=== PATIENT | male | born 1980 | race Caucasian/White ===

== ENCOUNTER 2024-01-30 07:16 | Emergency (ER) | payer BC, SELFPAY ==
[2024-01-30 07:24] VITALS: BP 156/102; PULSE 82; TEMP 36.6; O2SAT 99; BMI 34.7
--- NOTE | 2024-01-30 07:35 | CT_ITS ---
[address] [address] Patient Name: GAGAN LANDEROS MRN: [id number] date: 1980 Sex: M Assigned Patient Location: ED.MAIN Current Patient Location: ED.MAIN Accession/Order Number: [id number] Exam Date: 01/30/2024 07:54 Report Date: 01/30/2024 08:28 At the request of: REGINA GONSALEZ Procedure: CT abdomen pelvis wo con EXAMINATION: CT abdomen pelvis wo con HISTORY: left flank pain, r/o stone COMPARISON: No relevant comparison available. TECHNIQUE: Axial, Coronal, and Sagittal images were created without IV contrast. Dose reduction techniques were achieved by using automated exposure control and/or adjustment of mA and/or kV according to patient size and/or use of iterative reconstruction technique. FINDINGS: LUNG BASES: No visible pulmonary or pleural disease. LIVER: No enlargement, atrophy, abnormal density, or significant focal lesion. BILIARY: No dilatation or calcification. PANCREAS: No lesion, fluid collection, ductal dilatation, or atrophy. SPLEEN: No enlargement or focal lesion. ADRENALS: No mass or enlargement. KIDNEYS: Normal right. 4 mm stone in the left ureterovesical junction axial image 159 with asymmetric enlargement of the left kidney, mild left perinephric stranding and mild left ureteral dilatation BOWEL/MESENTERY: Colonic diverticulosis without evidence of acute diverticulitis. Nonobstructive bowel gas pattern. Normal appendix AORTA/VASCULAR: No aneurysm or dissection. RETROPERITONEUM: No mass or adenopathy. LYMPH NODES: No adenopathy. URINARY BLADDER: No visible focal wall thickening, lesion, or calculus. PELVIC ORGANS: No visible mass. Pelvic organs appropriate for patient age. ABDOMINAL WALL: No mass or hernia. BONES: No bony lesion or fracture. OTHER: Negative. CT/CT abdomen pelvis wo con IMPRESSION: 4 mm left ureterovesical junction with mild to moderate left obstructive uropathy Electronically authenticated by: VALDEMAR WYMAN Date: 01/30/2024 08:28
--- NOTE | 2024-01-30 07:35 | ED.BACK1 ---
HPI HPI - Back Pain/Injury General Chief Complaint: Back Pain/Injury Stated Complaint: FLANK/BACK PAIN Time Seen by Provider: 01/30/24 07:19 Source: patient Mode of arrival: walk-in Limitations: no limitations History of Present Illness HPI Narrative: 43-year-old male presented to the emergency department for left flank pain. It began last night. He has no history of trauma and has no history of kidney stones. No gross hematuria and no abdominal pain or right-sided pain. The pain is moderate and initially it was intermittent and now it is continuous. Related Data Home Medications ?Medication ?Instructions ?Recorded ?Confirmed alopurinol 100 mg PO DAILY 01/30/24 01/30/24 Previous Rx's ?Medication ?Instructions ?Recorded acetaminophen 300 mg-codeine 30 mg 1 tab PO Q6H PRN pain 5 days #20 01/30/24 tablet tabs ondansetron 4 mg disintegrating 4 mg PO Q6H PRN nausea and 01/30/24 tablet vomiting #20 tabs tamsulosin 0.4 mg capsule (Flomax) 0.4 mg PO DAILY #7 caps 01/30/24 Allergies Allergy/AdvReac Type Severity Reaction Status Date / Time No Known Drug Allergies Allergy Verified 01/30/24 07:23 Opioid HPI Opioid Management Most Recent Opioid Data: Last Pain Scale 6 01/30/24 07:46 Last ED Pain Assessment 01/30/24 07:30 Last MAR Pain Assessment 01/30/24 07:46 Review of Systems ROS Narrative A ten point review of systems is negative except as noted above. [facility] Medical History (Updated 01/30/24 @ 08:58 by Suman Harvey MD) Gout ?M10.9 - Gout, unspecified (ICD-10) Exam Narrative Exam Narrative: Nurses note and vital signs reviewed and patient is not hypoxic. General: The patient appears well and in no apparent distress. Patient is resting comfortably on cart. Skin: Warm, dry, no pallor noted. There is no rash noted. Head: Normocephalic, atraumatic Eye: Normal conjunctiva, no drainage Ears, Nose, Mouth, and Throat: oral mucosa is moist. Nares patent. Cardiovascular: Regular Rate and Rhythm Respiratory: Patient is in no distress, no accessory muscle use, lungs are clear to auscultation, no wheezing, rales or rhonchi Back: non-tender, no CVA tenderness bilaterally to percussion. No flank bruising or rash GI: Soft and nontender Musculoskeletal: The patient has no evidence of calf tenderness, no pitting edema, symmetrical pulses noted bilaterally Neurological: A&O, normal speech Psychiatric: Cooperative Constitutional Vital Signs, click to edit/add: Last Vital Signs Temp 98 F 01/30/24 07:24 Pulse 80 01/30/24 08:25 Resp 16 01/30/24 08:25 BP 154/104 H 01/30/24 08:25 Pulse Ox 99 01/30/24 08:25 O2 Del Method Room Air 01/30/24 07:24 Course Vital Signs Vital signs: Vital Signs Temperature 98 F 01/30/24 07:24 Pulse Rate 82 01/30/24 07:24 Respiratory Rate 18 01/30/24 07:24 Blood Pressure 156/102 H 01/30/24 07:24 Pulse Oximetry 99 01/30/24 07:24 Oxygen Delivery Method Room Air 01/30/24 07:24 Temperature 98 F 01/30/24 07:24 Pulse Rate 80 01/30/24 08:25 Respiratory Rate 16 01/30/24 08:25 Blood Pressure 154/104 H 01/30/24 08:25 Pulse Oximetry 99 01/30/24 08:25 Oxygen Delivery Method Room Air 01/30/24 07:24 MDM - Back Pain/Injury MDM Narrative Medical decision making narrative: 4 mm stone is seen at the UV junction. He is feeling much better and they have now passed it into his bladder. Findings are discussed with the patient. He was given a urine strainer and a specimen cup and was prescribed Flomax and Tylenol 3 and Zofran. He was advised to not take pain medicine at work. Treatment diagnosis and follow-up were discussed with the patient. Differential Diagnosis Differential diagnosis: Likely other (Muscle strain, kidney stone) Lab Data Attestation: I reviewed the patient's lab results. Labs: Lab Results 01/30/24 01/30/24 Range/Units 07:30 08:30 WBC 8.3 (4.0-11.0) 10^3/uL RBC 4.94 (4.70-6.10) 10^6/uL Hgb 13.8 L (14.0-18.0) g/dL Hct 42.0 (42.0-54.0) % MCV 85.0 (80.0-94.0) fL MCH 27.9 (25.9-34.0) pg MCHC 32.9 (29.9-35.2) g/dL RDW 12.2 (11.0-15.0) % Plt Count 348 (150-450) 10^3/uL MPV 9.1 L (9.5-13.5) fL Neut % (Auto) 79.5 H (43.0-75.0) % Lymph % (Auto) 10.5 L (20.5-60.0) % Bent % (Auto) 8.7 (1.7-12.0) % Eos % (Auto) 0.4 L (0.9-7.0) % Baso % (Auto) 0.4 (0.2-2.0) % Neut # (Auto) 6.6 H (1.4-6.5) 10^3/uL Lymph # (Auto) 0.9 L (1.2-3.8) 10^3/uL Bent # (Auto) 0.7 (0.3-0.8) 10^3/uL Eos # (Auto) 0.0 (0.0-0.7) 10^3/uL Baso # (Auto) 0.0 (0.0-0.1) 10^3/uL Abs Immat Gran (auto) 0.04 H (0.00-0.03) 10^3/uL Imm/Tot Granulo (auto) 0.5 (0.0-0.5) % Sodium 140 (136-145) mmol/L Potassium 4.2 (3.5-5.1) mmol/L Chloride 102 (98-107) mmol/L Carbon Dioxide 28.3 (21.0-32.0) mmol/L Anion Gap 13.9 BUN 13.0 (7.0-18.0) mg/dL Creatinine 1.18 (0.70-1.30) mg/dL Est GFR ( Amer) >60 (>=60) Est GFR (Non-Af Amer) >60 (>=60) BUN/Creatinine Ratio 11.0 Glucose 137 H (74-106) mg/dL Calcium 9.2 (8.5-10.1) mg/dL Urine Color Lt. yellow (YELLOW) Urine Clarity Clear (CLEAR) Urine pH 8.0 (5.0-9.0) Ur Specific [place] 1.015 (1.005-1.025) Urine Protein Negative (NEG/TRACE) mg/dL Urine Glucose (UA) Negative (NEGATIVE) mg/dL Urine Ketones Negative (NEGATIVE) mg/dL Urine Occult Blood Negative (NEGATIVE) Urine Nitrite Negative (NEGATIVE) Urine Bilirubin Negative (NEGATIVE) Urine Urobilinogen 2.0 A (0.2-1.0) EU/dL Ur Leukocyte Esterase Negative (NEGATIVE) Urine RBC 0-2 (0-2) #/HPF Urine WBC 0-2 A (NONE SEEN) #/HPF Ur Squamous Epith Cells None seen (NONE/RARE) #/LPF Urine Crystals None seen (None Seen) #/HPF Urine Bacteria None seen (NONE SEEN) #/HPF Urine Casts None seen (NONE SEEN) #/LPF Urine Mucus None seen (NONE SEEN) Imaging Data CT scan - abdomen: Radiologist's impression: ITS Impressions Abdomen/Pelvis CT 01/30/24 07:35 IMPRESSION: 4 mm left ureterovesical junction with mild to moderate left obstructive uropathy Electronically authenticated by: VALDEMAR WYMAN Date: 01/30/2024 08:28 Discharge Plan Discharge Stand Alone Forms: Portal Instructions Chief Complaint: Back Pain/Injury Clinical Impression: Kidney stone Patient Disposition: Home, Self-Care Time of Disposition Decision: 08:58 Condition: Good Mode of Transportation: Private Vehicle Prescriptions / Home Meds: New tamsulosin [Flomax] 0.4 mg capsule 0.4 mg PO DAILY Qty: 7 0RF acetaminophen-codeine 300-30 mg tablet 1 tab PO Q6H PRN (Reason: pain) 5 Days Qty: 20 0RF ondansetron 4 mg tablet,disintegrating 4 mg PO Q6H PRN (Reason: nausea and vomiting) Qty: 20 0RF No Action alopurinol 100 mg PO DAILY Print Language: Danish Instructions: Kidney Stones (ED), How to Strain Your Urine (ED) Additional Instructions: Do not take prescription pain medication while at work, it can make you drowsy. Referrals: Physician,Non-Staff, MD [Primary Care Provider] - 1 week
[2024-01-30 07:41] LABS: Basophils Percent Auto 0.4 % (0.2-2.0); Eosinophils Percent Auto 0.4 % (0.9-7.0); Hemoglobin 13.8 g/dL (14.0-18.0); Immature Granulocytes Abs Auto 0.04 10^3/uL (0.00-0.03); Immature Granulocytes Pct Auto 0.5 % (0.0-0.5); Lymphocytes Absolute Auto 0.9 10^3/uL (1.2-3.8); Lymphocytes Percent Auto 10.5 % (20.5-60.0); Mean Corpuscular HGB Conc 32.9 g/dL (29.9-35.2); Mean Corpuscular Hemoglobin 27.9 pg (25.9-34.0); Mean Platelet Volume 9.1 fL (9.5-13.5); Monocytes Absolute Auto 0.7 10^3/uL (0.3-0.8); Monocytes Percent Auto 8.7 % (1.7-12.0); Neutrophils Absolute Auto 6.6 10^3/uL (1.4-6.5); Neutrophils Percent Auto 79.5 % (43.0-75.0); Platelet Count 348 10^3/uL (150-450); Red Blood Count 4.94 10^6/uL (4.70-6.10); Red Cell Distribution Width 12.2 % (11.0-15.0); White Blood Count 8.3 10^3/uL (4.0-11.0)
[2024-01-30] MEDS: KETOROLAC TROMETHAMINE 30 MG/ML VIAL IVP (07:46)
[2024-01-30 08:01] LABS: Anion Gap 13.9; Calcium 9.2 mg/dL (8.5-10.1); Carbon Dioxide 28.3 mmol/L (21.0-32.0); Chloride 102 mmol/L (98-107); Estimated GFR (African America >60 (>=60); Estimated GFR (Non-African Ame >60 (>=60); Glucose 137 mg/dL (74-106); Potassium 4.2 mmol/L (3.5-5.1); Sodium 140 mmol/L (136-145)
[2024-01-30 08:25] VITALS: BP 154/104; PULSE 80; O2SAT 99
[2024-01-30 08:48] LABS: Bilirubin Urine NEGATIVE (NEGATIVE); Blood Urine NEGATIVE (NEGATIVE); Clarity Urine CLEAR (CLEAR); Color Urine LT. YELLOW (YELLOW); Glucose Urine UA NEGATIVE (NEGATIVE); Ketones Urine NEGATIVE (NEGATIVE); Leukocyte Esterase Urine NEGATIVE (NEGATIVE); Nitrite Urine NEGATIVE (NEGATIVE); Protein Urine NEGATIVE (NEG/TRACE); Specific Gravity Urine 1.015 (1.005-1.025)
[2024-01-30 08:57] LABS: WBC Urine 0-2 #/HPF (NONE SEEN)
[2024-01-30 08:58] LABS: Bacteria Urine NONE SEEN #/HPF (NONE SEEN); Cast Seen? NONE SEEN #/LPF (NONE SEEN); Crystals Seen? None Seen #/HPF (None Seen); Mucus Urine NONE SEEN (NONE SEEN); RBC Urine 0-2 #/HPF (0-2); Squamous Epithelial Cell Urine NONE SEEN #/LPF (NONE/RARE)
== END 2024-01-30 09:12 | disposition home or self-care (01) ==
PROVIDERS: Emergency Provider Emergency Medicine
DX: N20.0 Calculus of kidney (principal)
CPT/HCPCS: 36415; 74176; 80048; 81001; 85025; 96374; 99284; J1885